=== PATIENT | male | born 1980 ===

== ENCOUNTER 2017-09-22 22:13 | Inpatient (IN) | payer MEDICAID ==
[2017-09-22 23:20] LABS: BASO # 0.1 K/uL (0.0-0.2); BASO % 1.3 % (0.0-2.0); EOS # 0.2 K/uL (0.0-0.7); EOS % 3.2 % (0.0-4.0); HEMOGLOBIN 13.2 g/dL (12.0-18.0); LYMPH # 2.7 K/uL (1.0-4.3); LYMPH % 38.9 % (20.0-40.0); MEAN CELL VOLUME 88.9 fL (80.0-94.0); MEAN CORPUSCULAR HEMOGLOBIN 30.2 pg (27.0-31.0); MEAN PLATELET VOLUME 7.8 fL (7.2-11.7); MONO # 0.6 K/uL (0.0-0.8); MONO % 8.2 % (0.0-10.0); NEUT # 3.3 K/uL (1.8-7.0); NEUT % 48.4 % (50.0-75.0); RBC 4.36 Mil/uL (4.40-5.90); RED CELL DISTRIBUTION WIDTH 13.8 % (11.5-14.5); WHITE BLOOD COUNT 6.9 K/uL (4.8-10.8)
[2017-09-22 23:28] LABS: SQUAMOUS EPITHIAL 1 /hpf (0-5); URINE BACTERIA FEW (<OCC); URINE BILIRUBIN NEGATIVE (NEGATIVE); URINE BLOOD NEGATIVE (NEGATIVE); URINE CLARITY Hazy (Clear); URINE COLOR Yellow (YELLOW); URINE GLUCOSE (UA) NORMAL (Normal); URINE LEUKOCYTE ESTERASE 2+ Leu/uL (Negative); URINE PROTEIN 1+ mg/dL (NEGATIVE)
[2017-09-22 23:31] LABS: ALB/GLOB RATIO 1.4 (1.0-2.1); ALBUMIN 4.7 g/dL (3.5-5.0); ALT/SGPT 23 U/L (21-72); AST/SGOT 27 U/L (17-59); BLOOD UREA NITROGEN 18 mg/dL (9-20); CALCIUM 9.1 mg/dl (8.6-10.4); GFR AFRICAN-AMERICAN > 60; GFR NON-AFRICAN AMERICAN > 60
[2017-09-22 23:35] LABS: BARBITURATES, UR NEGATIVE (NEGATIVE); BENZODIAZEPINES, UR NEGATIVE (NEGATIVE); OPIATES, UR POSITIVE (NEGATIVE); PHENCYCLIDINE, UR NEGATIVE (NEGATIVE)
--- NOTE | 2017-09-23 00:09 | C.PDOC ---
History Of Present Illness 37 year old male presents to the ED requesting heroin detox. Patient states " he uses as much as he can", patient reports her last use was 5-6 hours ago. Patient was suboxone in the past but has not taking it in the past several months. Patient denies SI/HI, hallucinations, CP, SOB. Time Seen by Provider: 09/22/17 22:45 Chief Complaint (Nursing): Substance Abuse History Per: Patient History/Exam Limitations: no limitations Onset/Duration Of Symptoms: Days Current Symptoms Are (Timing): Still Present Suicide/Self Injury Attempted (Context): None Modifying Factor(s): Other (Heroin) Associated Symptoms: denies: Depression, Suicidal Thoughts, Suicidal Plan Involuntary Hold By: None Recent travel outside of the [place]: No Additional History Per: Patient Past Medical History Reviewed: Historical Data, Nursing Documentation, Vital Signs Vital Signs: Last Vital Signs Temp 97.8 F 09/23/17 00:27 Pulse 81 09/23/17 00:27 Resp 20 09/23/17 00:27 BP 131/68 09/23/17 00:27 Pulse Ox 98 09/23/17 00:27 - Medical History PMH: No Chronic Diseases Surgical History: No Surg Hx Family History: States: Unknown Family Hx - Social History Hx Alcohol Use: No Hx Substance Use: Yes Review Of Systems Constitutional: Negative for: Fever, Chills Cardiovascular: Negative for: Chest Pain Respiratory: Negative for: Cough, Shortness of Breath Gastrointestinal: Negative for: Vomiting, Abdominal Pain Skin: Negative for: Rash Neurological: Negative for: Weakness, Numbness, Headache Psych: Negative for: Depression, Suicidal ideation Physical Exam - Physical Exam Appears: Non-toxic, No Acute Distress Skin: Normal Color, Warm, Dry Head: Atraumatic, Normacephalic Eye(s): bilateral: Normal Inspection Nose: No Discharge Oral Mucosa: Moist Neck: Normal ROM, Supple Chest: Symmetrical Cardiovascular: Rhythm Regular, No Murmur Respiratory: Normal Breath Sounds, No Rales, No Rhonchi, No Wheezing Gastrointestinal/Abdominal: Soft, No Tenderness, No Guarding, No Rebound Extremity: Normal ROM, No Tenderness, No Swelling Neurological/Psych: Oriented x3 Gait: Steady ED Course And Treatment - Laboratory Results Result Diagrams: 09/22/17 23:16 09/22/17 23:16 O2 Sat by Pulse Oximetry: 96 (On RA) Pulse Ox Interpretation: Normal Medical Decision Making Medical Decision Making: Impression: detox Plan: * UA * Labs * Macrobid 100 mg PO * Urine culture Disposition - Disposition Disposition: HOSPITALIZED Disposition Time: 00:00 Condition: STABLE - Clinical Impression Clinical Impression: Opiate dependence - Scribe Statement The provider has reviewed the documentation as recorded by the Scribe Binu Phipps All medical record entries made by the Scribe were at my direction and personally dictated by me. I have reviewed the chart and agree that the record accurately reflects my personal performance of the history, physical exam, medical decision making, and the department course for this patient. I have also personally directed, reviewed, and agree with the discharge instructions and disposition.
--- NOTE | 2017-09-23 01:42 | PCM.BM ---
<Yi Zapata - Last Filed: 09/23/17 01:41> Treatment Plan Problems - Problems identified on initial assessmt Opiate Dependence Date Initiated: 09/23/17 Time Initiated: 01:41 Assessment reference: NA Status: Active Treatment assets and liabiliti Patient Assests: cooperative, ADL independent Patient Liabilities: substance abuse - Milieu Protocol Maintain good personal hygiene: daily Encourage regular showers, daily Remind patient to perform daily oral care, daily Assist patient to perform ADL's Maintain personal safety: every shift Educate patient to report safety concerns to staff, every shift Monitor environment for contraband/sharps Medication safety: Monitor for expected outcome, potential side effects: every shift, Assess barriers to learning: every shift, Assess readiness for medication education: every shift <Victoria Murphy - Last Filed: 09/26/17 13:15> - Diagnosis (1) Opiate dependence Status: Acute Interventions: 09/26/17 13:15 * Assess 7x/week regarding severity of withdrawal * Educate regarding risks, benefits, side effects and alternatives of medications * Use Motivational Interviewing for abstinence * Use CBT for relapse prevention * Medication management for withdrawal symptoms * Encourage medication assisted treatment *
--- NOTE | 2017-09-23 10:08 | PCM.PSYCH ---
Initial Psychiatric Evaluation - Initial Psychiatric Evaluation Type of Admission: Voluntary Legal Status: Capacity Chief Complaint (in patient's own words): "I need detox" History of Present Illness and Precipitating Events: HPI: patient is a 37 year old male who is single, homeless for two years, came to the ED to get help in heroin detox. Patient has been using heroin on and off since 2002 and uses about 10 to 20 bags per day. He does not admit to any other drug use. He has been through detox once at [facility] and was scheduled to follow up in rehab program in [facility]. After he left [facility] he decided to try and kick the habit on his own but was unsuccessful. Patient realizes he made a mistake and was requesting to try again but this time follow through with aftercare. He prefers [facility] in [place] due to the fact that he is too familiar with the [place] area and does not trust himself going to [place] [facility]. Patient denies any suicidal or homicidal ideations and no auditory or visual hallucinations. Detox Hx: Once at [facility] Rehab Hx: None Medical Hx: None Medications: None Psych Hx: None Fam Hx: None Current Medications: Active Medications Generic Name Dose Route Start Last Admin Trade Name Freq PRN Reason Stop Dose Admin Ciprofloxacin 500 mg 09/23/17 00:30 09/23/17 00:30 Cipro PO 09/27/17 20:00 500 mg BID [facility] Administration Protocol Clonidine HCl 0.1 mg 09/23/17 00:20 Catapres PO Q8 PRN COWS Score More or Equal to 5 Dicyclomine HCl 10 mg 09/23/17 00:21 Bentyl PO Q6 PRN Other Gabapentin 400 mg 09/23/17 10:00 Neurontin PO TID KOFI Ibuprofen 400 mg 09/23/17 00:22 Motrin Tab PO Q6 PRN Pain, moderate (4-7) Loperamide HCl 2 mg 09/23/17 00:20 Imodium PO Q8 PRN Diarrhea Ondansetron HCl 4 mg 09/23/17 00:20 Zofran Tab PO Q8 PRN Nausea/Vomiting Trazodone HCl 50 mg 09/23/17 22:00 Desyrel PO HS KOFI Past Psychiatric History - Past Psychiatric History Previous Treatment History: Inpatient Pertinent Medical Hx (Current Medical&Sleep Prob, Allergies): Allergies Allergy/AdvReac Type Severity Reaction Status Date / Time mushroom Allergy Verified 09/22/17 22:37 Penicillins Allergy Verified 09/22/17 22:37 No Known Home Med 09/22/17 Review of Systems - Review of Systems All systems: reviewed and no additional remarkable complaints except - Psychiatric Psychiatric: Anxiety, Depression, Hopelessness. absent: Auditory Hallucinations , Hallucinations, Homicidal Ideation, Suicidal Ideation, Visual Hallucinations, Tactile Hallucinations Mental Status Examination - Personal Presentation Personal Presentation: Looks stated age - Affect Affect: Constricted, Depressed - Motor Activity Motor Activity: Calm - Reliability in Providing Information Reliability in Providing Information: Good - Speech Speech: Organized - Formal Thought Process Formal Thought Process: No Impairment - Obsessions/Compulsions Obsessions: No Compulsions: No - Cognitive Functions Orientation: Person, Place, Situation, Time Sensorium: Alert Attention/Concentration: Attentive Abstract Thinking: [place] Estimate of Intelligence: Below average Judgement: Imparied, as evidence by: Poor judgement, Imparied, as evidence by: Lack of insight into illness Memory: Recent intact, as evidence by: Ability to recall events of the day, Remote intact, as evidenced by: Abilit to recall sig. life events - Risk Risk: Withdrawal, Diminished functioning - Limitations Limitations: Living alone DSM 5 DX - DSM 5 DSM 5 Diagnosis: Opioid Withdrawal Opioid Use d/o - severe Anxiety d/o - unspecified Borderline Personality traits - Recommended/Plan of Treatment Treatment Recommendations and Plan of Treatment: Plan for [facility] intake Heroin detox Gabapentin for augmentation As needed medications All risks, benefits and alternatives of the meds discussed, and the pt agreed and understood. Attend groups and activities Supportive therapy and psychoeducation [place] for abstinence CBT for relapse prevention Encourage MAT Refer to rehab or IOP, and self-help groups 34 min Projected ELOS: 4-5 days Prognosis: Good with rehab Discharge Plan and Discharge Criteria: Rehab and MAT - Smoking Cessation Smoking Cessation Initiated: No
[2017-09-23] MEDS ORDERED: Buprenorphine Hydrochloride 2 mg SL ONE ×3 (19:15→20:33)
[2017-09-24] MEDS ORDERED: Buprenorphine Hydrochloride 2 mg SL SCH (11:15)
[2017-09-24] MEDS ORDERED: Buprenorphine Hydrochloride 2 mg SL ONE (11:19)
--- NOTE | 2017-09-24 12:32 | PCM.PYCHPN ---
Psychiatric Progress Note - Psychiatric Progress Note Patient seen today, length of contact: 15 minutes Patient Chief Complaint: "I have opioid withdrawal symptoms" Problems Identified/Issues Discussed: The pt was seen and evaluated. Chart reviewed and nurse input received that pt is compliant with meds. He is started on treatment with psychotherapy, support, psychoeducation and medications. Pt reported withdrawal symptoms including, nausea, hot and cold sweat, etc MD and CBT used. The pt attended groups and activities, as well as milieu therapy. All the risks and benefits of medications are discussed and the patient understood and agreed. After care discussed with the patient. DSM 5 Symptoms Update: opioid dependence opioid withdrawal symptoms Panic disorder without agoraphobia Medication Change: Yes (subutex taper daily) Medical Record Reviewed: Yes Consults ordered or reviewed: no Mental Status Examination - Cognitive Function Orientation: Person, Place, Situation, Time Memory: Intact Attention: WNL Concentration: WNL Association: WNL Fund of Knowledge: [facility] Decription of patient's judgement and insights: fair/good Addtional comments: calm, cooperative - Mood Mood: Anxious - Affect Affect: Constricted, Depressed - Speech Speech: Appropriate - Formal Thought Process Formal Thought Process: No Impairment Psychotic Thoughts and Behaviors: denied - Suicidal Ideation Suicidal Ideation: No Plan: denied - Homicidal Ideation Homicidal Ideation: No Plan: denied Goal/Treatment Plan - Goal/Treatment Plan Need for Continued Stay: Discharge may exacerbated symptoms Progress Toward Problem(s) and Goals/Treatment Plan: Continue current treatment as per primary team. Psychoeducation provided regarding diagnosis, treatment, meds benefits, side effects, risk and alternative choices. Pt verbalized understanding and agree with the treatment plan. Estimated Date of D/C: 09/26/17 - Smoking Cessation Smoking Cessation Initiated: Yes
[2017-09-25] MEDS: Buprenorphine Hydrochloride 2 mg SL SCH (09:22)
--- NOTE | 2017-09-25 20:42 | PCM.PYCHPN ---
Psychiatric Progress Note - Psychiatric Progress Note Patient seen today, length of contact: 15 minutes Patient Chief Complaint: "Anxiety" Problems Identified/Issues Discussed: THe pt is seen, chart reviewed, case discussed Support and SC provided Detox is uneventful After care discussed Medication Change: Yes (subutex taper daily) Medical Record Reviewed: Yes Mental Status Examination - Cognitive Function Orientation: Person, Place, Situation, Time Memory: Intact Attention: WNL Concentration: WNL Association: WNL Fund of Knowledge: WNL - Mood Mood: Anxious - Affect Affect: Constricted, Depressed - Speech Speech: Appropriate - Formal Thought Process Formal Thought Process: No Impairment - Suicidal Ideation Suicidal Ideation: No - Homicidal Ideation Homicidal Ideation: No Goal/Treatment Plan - Goal/Treatment Plan Need for Continued Stay: Discharge may exacerbated symptoms, Severe functional impairment Progress Toward Problem(s) and Goals/Treatment Plan: Continue detox After care by counselors Support, psychoed SC and CBt Attend groups and activities prn meds Estimated Date of D/C: 09/26/17
[2017-09-26 06:03] VITALS: PULSE 64
[2017-09-26 08:32] VITALS: BP 135/82; RESP 20; TEMP 97.6; O2SAT 100
[2017-09-26] MEDS: Buprenorphine Hydrochloride 2 mg SL SCH (09:00)
--- NOTE | 2017-09-26 20:45 | PCM.PYCHDC ---
Mental Status Examination - Mental Status Examination Orientation: Person, Place, Situation, Time Memory: Intact Mood: Neutral Affect: Other (Appropriate) Speech: Appropriate Attention: WNL Concentration: WNL Association: WNL Fund of Knowledge: WNL Formal Thought Process: No Impairment Description of patient's judgement and insight: Fair Psychotic Thoughts and Behaviors: None Suicidal Ideation: No Current Homicidal Ideation?: No Discharge Summary - Discharge Note Reason for Hospitalization: Opioid use Anxiety disorder Laboratory Data: Reviewed Consultations:: List each consultation separately and include: 1. Reason for request. 2. Findings. 3. Follow-up Summary of Hospital Course include:: 1. Description of specific treatment plan utilized for patients during their course of treatmen. 2. Summarize the time- course for resolution of acute symptoms and/or regressed behaviors. 3. Describe issues identified and worked on during hospitalization. 4. Describe medication utilized. 5. Describe medical problems identified and treated. 6. Reassessment of suicide risk Summary of Hospital Course: patient is a 37 year old male who is single, homeless for two years, came to the ED to get help in heroin detox. Patient has been using heroin on and off since 2002 and uses about 10 to 20 bags per day. He does not admit to any other drug use. He has been through detox once at [facility] and was scheduled to follow up in rehab program in [facility]. After he left [facility] he decided to try and kick the habit on his own but was unsuccessful. Patient realizes he made a mistake and was requesting to try again but this time follow through with aftercare. He prefers [facility] in [place] due to the fact that he is too familiar with the [place] area and does not trust himself going to [place] [facility]. Patient denies any suicidal or homicidal ideations and no auditory or visual hallucinations. During his stay in the hospital patient was treated with Subutex and other as needed medications. Patient was also treated with ciprofloxacin for UTI. Patient attended groups and other activities on the unit. With above treatment patient started feeling better. Today patient was stable and ready for discharge. At the time of evaluation and discharged, patient was awake alert oriented 3, had no delusions, no auditory or visual hallucinations , no suicidal ideations or homicidal ideations. Patient was discharged in stable condition. - Final Diagnosis (DSM 5) Condition upon Discharge: STABLE Disposition: HOME/ ROUTINE Follow-up Treatment Plan: Patient will go to [facility] for follow-up care after discharge from the hospital. Prescriptions/Medication Reconciliation: Ciprofloxacin [Cipro] 500 mg PO BID #10 tab Gabapentin [Neurontin] 400 mg PO TID #90 cap traZODone [Desyrel] 50 mg PO HS #30 tab - Smoking Cessation Smoking Cessation Medication prescribed: No - Antipsychotic Medications Pt discharged on 2 or more routine antipsychotic medications: No
== END 2017-09-26 09:10 | disposition home or self-care (01) | DRG 744 ==
LOC: C.ER 22:13 → C.7D 09-23 00:01
PROC: HZ2ZZZZ Detoxification Services for Substance Abuse Treatment (ICD-10-PCS; principal; 2017-09-23)
PROC: HZ52ZZZ Individual Psychotherapy for Substance Abuse Treatment, Cognitive-Behavioral (ICD-10-PCS; 2017-09-23)
PROC: HZ42ZZZ Group Counseling for Substance Abuse Treatment, Cognitive-Behavioral (ICD-10-PCS; 2017-09-23)
PROC: HZ59ZZZ Individual Psychotherapy for Substance Abuse Treatment, Supportive (ICD-10-PCS; 2017-09-23)
PROC: HZ56ZZZ Individual Psychotherapy for Substance Abuse Treatment, Psychoeducation (ICD-10-PCS; 2017-09-23)
PROC: HZ46ZZZ Group Counseling for Substance Abuse Treatment, Psychoeducation (ICD-10-PCS; 2017-09-23)
DX: F11.23 Opioid dependence with withdrawal (principal); N39.0 Urinary tract infection, site not specified; F32.9 Major depressive disorder, single episode, unspecified; F41.0 Panic disorder [episodic paroxysmal anxiety]; Z59.0 Homelessness; F41.9 Anxiety disorder, unspecified; F60.3 Borderline personality disorder

== ENCOUNTER 2017-12-04 19:45 | Inpatient (IN) | payer MEDICAID ==
[2017-12-04 20:44] LABS: BASO % 0.5 % (0.0-2.0); EOS % 0.3 % (0.0-4.0); HEMOGLOBIN 13.5 g/dL (12.0-18.0); LYMPH # 1.4 K/uL (1.0-4.3); LYMPH % 15.4 % (20.0-40.0); MEAN CELL VOLUME 88.3 fL (80.0-94.0); MEAN CORPUSCULAR HEMOGLOBIN 30.6 pg (27.0-31.0); MEAN CORPUSCULAR HGB CONC 34.7 g/dL (33.0-37.0); MEAN PLATELET VOLUME 7.6 fL (7.2-11.7); MONO # 0.6 K/uL (0.0-0.8); MONO % 6.7 % (0.0-10.0); NEUT # 6.8 K/uL (1.8-7.0); NEUT % 77.1 % (50.0-75.0); RBC 4.41 Mil/uL (4.40-5.90); RED CELL DISTRIBUTION WIDTH 13.7 % (11.5-14.5); WHITE BLOOD COUNT 8.9 K/uL (4.8-10.8)
[2017-12-04 20:48] LABS: SQUAMOUS EPITHIAL 1 /hpf (0-5); URINE BACTERIA RARE (<OCC); URINE BILIRUBIN NEGATIVE (NEGATIVE); URINE BLOOD NEGATIVE (NEGATIVE); URINE CLARITY Hazy (Clear); URINE COLOR Yellow (YELLOW); URINE GLUCOSE (UA) NORMAL (Normal); URINE LEUKOCYTE ESTERASE NEG Leu/uL (Negative); URINE PROTEIN 1+ mg/dL (NEGATIVE)
--- NOTE | 2017-12-04 20:55 | C.PDOC ---
History Of Present Illness Patient is a 37 y/o male who presents to the ED requesting heroin detox. Patient admits last use was 5 hours ago. Patient received detox 3 months ago. No other physical complaints at this time. Time Seen by Provider: 12/04/17 20:17 Chief Complaint (Nursing): Substance Abuse History Per: Patient History/Exam Limitations: no limitations Onset/Duration Of Symptoms: Days Current Symptoms Are (Timing): Still Present Suicide/Self Injury Attempted (Context): None Modifying Factor(s): Narcotics (heroin) Recent travel outside of the [place]: No Past Medical History Reviewed: Historical Data, Nursing Documentation, Vital Signs Vital Signs: Last Vital Signs Temp 98.6 F 12/04/17 20:10 Pulse 92 H 12/04/17 20:10 Resp 18 12/04/17 20:10 BP 124/79 12/04/17 20:10 Pulse Ox 99 12/04/17 20:58 - Medical History PMH: No Chronic Diseases Denies: Diabetes, Hepatitis, HIV, HTN, Seizures, Sexually Transmitted Disease Surgical History: No Surg Hx - [facility] Procedures DETOXIFICATION SERVICES FOR SUBSTANCE ABUSE TREATMENT (09/23/17) GROUP LOFTSMAN FOR SUBSTANCE ABUSE TREATMENT, PSYCHOEDUCATION (09/23/17) GROUP LOFTSMAN FOR SUBSTANCE ABUSE, COGNITIVE BEHAVIORAL (09/23/17) INDIV PSYCHOTHERAPY FOR SUBSTANCE ABUSE TREATMENT, SUPPORT (09/23/17) INDIV PSYCHOTHERAPY FOR SUBSTANCE ABUSE, COGNITIV BEHAVIORAL (09/23/17) INDIV PSYCHOTHERAPY FOR SUBSTANCE ABUSE, PSYCHOEDUCATION (09/23/17) Family History: States: Unknown Family Hx - Social History Hx Tobacco Use: Yes (light smoker) Hx Alcohol Use: No Hx Substance Use: Yes (heroin snort) - Immunization History Hx Tetanus Toxoid Vaccination: No Hx Influenza Vaccination: Yes Hx Pneumococcal Vaccination: No Review Of Systems Constitutional: Negative for: Fever, Chills Psych: Positive for: Other (requesting heroin detox). Negative for: Suicidal ideation Physical Exam - Physical Exam Appears: Toxic (chronically toxic-appearing), No Acute Distress Skin: Normal Color, Warm, Dry Head: Atraumatic, Normacephalic Eye(s): bilateral: Other (pinpoint pupils ) Oral Mucosa: Moist Chest: Symmetrical Cardiovascular: Rhythm Regular, No Murmur Respiratory: Normal Breath Sounds, No Rales, No Rhonchi, No Wheezing Gastrointestinal/Abdominal: Soft, No Tenderness Neurological/Psych: Oriented x3, Normal Speech, Normal Cognition ED Course And Treatment - Laboratory Results Result Diagrams: 12/04/17 20:39 12/04/17 20:39 Lab Interpretation: Abnormal (tox + opiates) O2 Sat by Pulse Oximetry: 99 Pulse Ox Interpretation: Normal Progress Note: Blood work ordered. Crisis notified. Reevaluation Time: 21:10 Reassessment Condition: Unchanged - Physician Consult Information Outcome Of Conversation: 2109: d/w Crisis, ok to admit to detox Disposition Doctor Will See Patient In The: Hospital Counseled Patient/Family Regarding: Studies Performed, Diagnosis - Disposition Referrals: Non [facility] Provider, [Primary Care Provider] - Disposition: HOSPITALIZED Disposition Time: 21:11 Condition: GOOD Forms: [facility] (Czech) - Clinical Impression Clinical Impression: Opiate dependence - Scribe Statement The provider has reviewed the documentation as recorded by the Scribe Marie Alaniz All medical record entries made by the Scribe were at my direction and personally dictated by me. I have reviewed the chart and agree that the record accurately reflects my personal performance of the history, physical exam, medical decision making, and the department course for this patient. I have also personally directed, reviewed, and agree with the discharge instructions and disposition.
[2017-12-04 20:58] LABS: ALB/GLOB RATIO 1.3 (1.0-2.1); ALBUMIN 4.4 g/dL (3.5-5.0); ALT/SGPT 15 U/L (21-72); AST/SGOT 24 U/L (17-59); BLOOD UREA NITROGEN 20 mg/dL (9-20); CALCIUM 9.5 mg/dl (8.6-10.4); GFR AFRICAN-AMERICAN > 60; GFR NON-AFRICAN AMERICAN > 60
[2017-12-04 21:00] LABS: BARBITURATES, UR NEGATIVE (NEGATIVE); BENZODIAZEPINES, UR NEGATIVE (NEGATIVE); PHENCYCLIDINE, UR NEGATIVE (NEGATIVE)
[2017-12-04 21:01] LABS: OPIATES, UR POSITIVE (NEGATIVE)
--- NOTE | 2017-12-04 21:41 | PCM.BM ---
<Be Smith - Last Filed: 12/04/17 21:39> Treatment Plan Problems - Problems identified on initial assessmt potential for opiate withdrawal Date Initiated: 12/04/17 Time Initiated: 21:40 Status: Active Treatment assets and liabiliti Patient Assests: cooperative, ADL independent Patient Liabilities: substance abuse - Milieu Protocol Maintain good personal hygiene: daily Encourage regular showers, daily Remind patient to perform daily oral care, daily Assist patient to perform ADL's Conduct patient checks and document Observation sheet: Q15 minutes Maintain personal safety: every shift Educate patient to report safety concerns to staff, every shift Monitor environment for contraband/sharps Medication safety: Monitor for expected outcome, potential side effects: every shift, Assess barriers to learning: every shift, Assess readiness for medication education: every shift <Victoria Murphy - Last Filed: 12/05/17 12:31> - Diagnosis (1) Opiate dependence Status: Acute Interventions: 12/05/17 12:31 * Assess 7x/week regarding severity of withdrawal * Educate regarding risks, benefits, side effects and alternatives of medications * Use Motivational Interviewing for abstinence * Use CBT for relapse prevention * Medication management for withdrawal symptoms * Encourage medication assisted treatment *
--- NOTE | 2017-12-05 14:44 | PCM.PSYCH ---
Initial Psychiatric Evaluation - Initial Psychiatric Evaluation Type of Admission: Voluntary Legal Status: Capacity Chief Complaint (in patient's own words): "I want to detox from heroin" History of Present Illness and Precipitating Events: Patient is a 37 year old male who is single, homeless for two years, came to the ED to get help for heroin detox. Patient has been using heroin on and off since 2002 and uses about 10 bags a day. Patient denies all other drug abuse such as Xanax, benzos, opioid pills, cocaine, marijuana. Patient denies alcohol use. Patient smokes 1 PPD for 23 years. Patient lives with sister and nephew in [place]. He was previously admitted for detox back in September. He went to [facility] in [place] for 2 months. One day there was a in the family and could not make it back in time for curfew and was discharge from the program. Patient relapsed one day after discharge. Patient is currently interested in going back to [facility] ([place] is preferred). Patient at the time does not have withdrawal symptoms; last took heroin less than 24 hours ago. Patient denies suicidal or homicidal ideations and no auditory or visual hallucinations. Detox HX 2 ([facility]) Rehab HX 1x Medical HX Denies Surgical HX Left Hip Surgery Medications Denies Psych HX Denies Family HX Denies Allergies Mushrooms, Penicillin Current Medications: Active Medications Generic Name Dose Route Start Last Admin Trade Name Freq PRN Reason Stop Dose Admin Clonidine HCl 0.1 mg 12/04/17 21:27 Catapres PO Q8 PRN COWS Score More or Equal to 5 Hydroxyzine HCl 50 mg 12/05/17 10:01 Atarax PO Q6H PRN Anxiety Ibuprofen 600 mg 12/04/17 21:29 Motrin Tab PO TID PRN Pain, moderate (4-7) Loperamide HCl 2 mg 12/04/17 21:27 Imodium PO Q8 PRN Diarrhea Ondansetron HCl 4 mg 12/04/17 21:27 Zofran Tab PO Q8 PRN Nausea/Vomiting Trazodone HCl 100 mg 12/05/17 22:00 Desyrel PO HS PRN Insomnia Past Psychiatric History - Past Psychiatric History Previous Treatment History: None Pertinent Medical Hx (Current Medical&Sleep Prob, Allergies): Allergies Allergy/AdvReac Type Severity Reaction Status Date / Time mushroom Allergy Verified 12/04/17 20:10 Penicillins Allergy Verified 12/04/17 20:10 No Known Home Med 12/04/17 Review of Systems - Review of Systems All systems: reviewed and no additional remarkable complaints except - Neurological Neurological: UNREMARKABLE - Psychiatric Psychiatric: Abnormal Sleep Pattern. absent: Anhedonia, Anxiety, Auditory Hallucinations, Depression, Difficulty Concentrating, Hallucinations, Homicidal Ideation, Hopelessness, Suicidal Ideation, Visual Hallucinations, Tactile Hallucinations Mental Status Examination - Personal Presentation Personal Presentation: Looks stated age - Affect Affect: Constricted - Motor Activity Motor Activity: Calm - Reliability in Providing Information Reliability in Providing Information: Good - Speech Speech: Organized - Mood Mood: Anxious - Formal Thought Process Formal Thought Process: No Impairment - Cognitive Functions Orientation: Person, Place, Time Sensorium: Alert Attention/Concentration: Attentive Estimate of Intelligence: Average Judgement: Intact, as evidence by: Insight regarding need for hospitalization Memory: Recent intact, as evidence by: Ability to recall events of the day, Remote intact, as evidenced by: Abilit to recall sig. life events - Risk Risk: Withdrawal, Diminished functioning - Strength & Assets Inventory Strength & Assets Inventory: Cooperative DSM 5 DX - DSM 5 DSM 5 Diagnosis: Opioid Withdrawal Opioid Use Disorder, Severe Tobacco Use Disorder, Severe - Recommended/Plan of Treatment Treatment Recommendations and Plan of Treatment: Methadone detox As needed medications Attend groups and activities Supportive therapy and psychoeducation [place] for abstinence CBT for relapse prevention Encourage MAT Refer to rehab or IOP Attend self-help groups as well 34 min Projected ELOS: 4-5 days - Smoking Cessation Smoking Cessation Initiated: Yes
--- NOTE | 2017-12-06 10:09 | PCM.PYCHPN ---
Psychiatric Progress Note - Psychiatric Progress Note Patient seen today, length of contact: 17 min Patient Chief Complaint: I'm still withdrawing Problems Identified/Issues Discussed: Patient seen and evaluated, chart reviewed and discussed with the nurse. Patient still reports withdrawal symptoms nausea, headaches, anxiety, joint pains and abdominal cramps. He reports some improvement in his mood and denies any feelings of hopelessness and helplessness. He denies any auditory or visual hallucinations, or any psychotic symptoms. He is tolerating the withdrawal medications and denies any side effects. Symptoms are improving but needs to stay longer for further stabilization Supportive therapy and psychoeducation were given. Medication Change: Yes Medical Record Reviewed: Yes Mental Status Examination - Cognitive Function Orientation: Person, Place, Time Memory: Intact Attention: WNL Concentration: Poor Association: WNL Fund of Knowledge: Poor - Mood Mood: Anxious - Affect Affect: Constricted - Speech Speech: Soft - Formal Thought Process Formal Thought Process: No Impairment - Suicidal Ideation Suicidal Ideation: No - Homicidal Ideation Homicidal Ideation: No Goal/Treatment Plan - Goal/Treatment Plan Need for Continued Stay: Severe depression anxiety, Severe functional impairment Progress Toward Problem(s) and Goals/Treatment Plan: Opioid Withdrawal Opioid Use Disorder, Severe Tobacco Use Disorder, Severe Methadone detox As needed medications Attend groups and activities Supportive therapy and psychoeducation [place] for abstinence CBT for relapse prevention Encourage MAT Refer to rehab or IOP Attend self-help groups as well - Smoking Cessation Smoking Cessation Initiated: No
--- NOTE | 2017-12-07 08:41 | RAD ---
Chest x-ray two views History: Discharge criteria. Comparison: None available. Findings: No focal infiltrate or effusion. Biapical pleural thickening. Heart size within normal limits. Impression: No focal infiltrate or effusion.
--- NOTE | 2017-12-07 12:26 | PCM.PYCHPN ---
Psychiatric Progress Note - Psychiatric Progress Note Patient seen today, length of contact: 17 min Patient Chief Complaint: I'm still withdrawing Problems Identified/Issues Discussed: Patient seen and evaluated, chart reviewed and discussed with the nurse. Patient still reports withdrawal symptoms nausea, headaches, anxiety, joint pains and abdominal cramps. He reports some improvement in his mood and denies any feelings of hopelessness and helplessness. He denies any auditory or visual hallucinations, or any psychotic symptoms. He is tolerating the withdrawal medications and denies any side effects. He is requesting to split his methadone. Symptoms are improving but needs to stay longer for further stabilization Supportive therapy and psychoeducation were given. Medication Change: Yes Medical Record Reviewed: Yes Mental Status Examination - Cognitive Function Orientation: Person, Place, Time Memory: Intact Attention: WNL Concentration: Poor Association: WNL Fund of Knowledge: Poor - Mood Mood: Anxious - Affect Affect: Constricted - Speech Speech: Soft - Formal Thought Process Formal Thought Process: No Impairment - Suicidal Ideation Suicidal Ideation: No - Homicidal Ideation Homicidal Ideation: No Goal/Treatment Plan - Goal/Treatment Plan Need for Continued Stay: Severe depression anxiety, Severe functional impairment Progress Toward Problem(s) and Goals/Treatment Plan: Opioid Withdrawal Opioid Use Disorder, Severe Tobacco Use Disorder, Severe Methadone detox As needed medications Attend groups and activities Supportive therapy and psychoeducation [place] for abstinence CBT for relapse prevention Encourage MAT Refer to rehab or IOP Attend self-help groups as well
--- NOTE | 2017-12-08 12:54 | PCM.PYCHPN ---
Psychiatric Progress Note - Psychiatric Progress Note Patient seen today, length of contact: 15 min Patient Chief Complaint: "I needed an extra dose" Problems Identified/Issues Discussed: The pt is seen, chart reviewed, case discussed with staff. Support and psychoeducation given, CBT and [place] used briefly No new symptoms reported, improving slowly and needs more time No SEs from medications, risks discussed. After care discussed Medication Change: Yes (detox changes daily) Medical Record Reviewed: Yes Mental Status Examination - Cognitive Function Orientation: Person, Place, Time Memory: Intact Attention: WNL Concentration: Poor Association: WNL Fund of Knowledge: Poor - Mood Mood: Anxious - Affect Affect: Constricted - Speech Speech: Soft - Formal Thought Process Formal Thought Process: No Impairment - Suicidal Ideation Suicidal Ideation: No - Homicidal Ideation Homicidal Ideation: No Goal/Treatment Plan - Goal/Treatment Plan Need for Continued Stay: Discharge may exacerbated symptoms, Severe functional impairment Progress Toward Problem(s) and Goals/Treatment Plan: Methadone detox As needed medications Attend groups and activities Supportive therapy and psychoeducation [place] for abstinence CBT for relapse prevention Encourage MAT Refer to rehab or IOP Attend self-help groups as well
[2017-12-09 08:25] VITALS: BP 111/70; PULSE 67; RESP 20; TEMP 97.7; O2SAT 99
--- NOTE | 2017-12-09 08:40 | PCM.PYCHDC ---
Mental Status Examination - Mental Status Examination Orientation: Person, Place, Situation, Time Memory: Intact Mood: Anxious Affect: Constricted Speech: Appropriate Attention: WNL Concentration: WNL Association: WNL Fund of Knowledge: WNL Formal Thought Process: No Impairment Suicidal Ideation: No Current Homicidal Ideation?: No Discharge Summary - Discharge Note Reason for Hospitalization: Opioid detox Consultations:: List each consultation separately and include: 1. Reason for request. 2. Findings. 3. Follow-up Summary of Hospital Course include:: 1. Description of specific treatment plan utilized for patients during their course of treatmen. 2. Summarize the time- course for resolution of acute symptoms and/or regressed behaviors. 3. Describe issues identified and worked on during hospitalization. 4. Describe medication utilized. 5. Describe medical problems identified and treated. 6. Reassessment of suicide risk Summary of Hospital Course: He is seen, chart reviewed and case discussed today. On admission: Patient is a 37 year old male who is single, homeless for two years, came to the ED to get help for heroin detox. Patient has been using heroin on and off since 2002 and uses about 10 bags a day. Patient denies all other drug abuse such as Xanax, benzos, opioid pills, cocaine, marijuana. Patient denies alcohol use. Patient smokes 1 PPD for 23 years. Patient lives with sister and nephew in [place]. He was previously admitted for detox back in September. [facility] in [place] for 2 months. One day there was a in the family and could not make it back in time for curfew and was discharge from the program. Patient relapsed one day after discharge. Patient is currently interested in going back to [facility] ([place] is preferred). Patient at the time does not have withdrawal symptoms; last took heroin less than 24 hours ago. Patient denies suicidal or homicidal ideations and no auditory or visual hallucinations. Detox HX 2 ([facility]) Rehab HX 1x Medical HX Denies Surgical HX Left Hip Surgery Medications Denies Psych HX Denies Family HX Denies Allergies Mushrooms, Penicillin Hospital course: The pt was admitted and started on treatment with psychotherapy, support, psychoeducation and medications. OR and CBT used. The pt attended groups and activities, as well as milieu therapy. All the risks and benefits of medications are discussed and the patient understood and agreed. The pt improved with the treatments provided. After care discussed with the patient. He went to [facility] in [facility]. - Final Diagnosis (DSM 5) Condition upon Discharge: GOOD DSM 5: Opioid Withdrawal Opioid Use Disorder, Severe Tobacco Use Disorder, Severe Disposition: REHAB FACILITY/REHAB UNIT Follow-up Treatment Plan: Continue below medications after discharge. Follow after care plan as discussed. Use relapse prevention skills Return to ER or call 911 if suicidal, homicidal or symptoms relapse. Stay away from stress, alcohol and drugs. See primary doctor regularly and get labs. Prescriptions/Medication Reconciliation: traZODone [Desyrel] 100 mg PO HS PRN #30 tab PRN Reason: Insomnia
== END 2017-12-09 08:48 | disposition home or self-care (01) | DRG 745 ==
LOC: SUPCPDRO 19:45 → C.ER 19:45 → C.7D 21:11
PROVIDERS: ADMIT Psychiatry & Neurology Psychiatry; ATTEND Psychiatry & Neurology Psychiatry
PROC: HZ2ZZZZ Detoxification Services for Substance Abuse Treatment (ICD-10-PCS; principal; 2017-12-04)
PROC: HZ52ZZZ Individual Psychotherapy for Substance Abuse Treatment, Cognitive-Behavioral (ICD-10-PCS; 2017-12-04)
PROC: HZ59ZZZ Individual Psychotherapy for Substance Abuse Treatment, Supportive (ICD-10-PCS; 2017-12-04)
PROC: HZ56ZZZ Individual Psychotherapy for Substance Abuse Treatment, Psychoeducation (ICD-10-PCS; 2017-12-04)
PROC: HZ42ZZZ Group Counseling for Substance Abuse Treatment, Cognitive-Behavioral (ICD-10-PCS; 2017-12-04)
PROC: HZ46ZZZ Group Counseling for Substance Abuse Treatment, Psychoeducation (ICD-10-PCS; 2017-12-04)
DX: F11.23 Opioid dependence with withdrawal (principal); G47.00 Insomnia, unspecified; F32.9 Major depressive disorder, single episode, unspecified; F41.9 Anxiety disorder, unspecified; F17.210 Nicotine dependence, cigarettes, uncomplicated; Z59.0 Homelessness; Z91.018 Allergy to other foods